=== PATIENT | female | born 1990 | race African-American/Black ===

== ENCOUNTER 2020-02-15 10:35 | Inpatient (IN) | payer OTHER ==
[~2020-02-15] VITALS: Ht 175.3 cm; Wt 131.5 kg
[2020-02-15] MEDS: LACTATED RINGERS 1,000 ML IV SCH (12:00)
[2020-02-15] MEDS ORDERED: DEXT 5%/LR + PITOCIN 20UNITS/L 1,000 ML IV ONE (14:14)
[2020-02-15] MEDS ORDERED: LACTATED RINGERS 1,000 ML IV SCH (14:20)
[2020-02-15] MEDS ORDERED: MISOPROSTOL 200MCG TABLET VG SCH (14:30)
[2020-02-15] MEDS ORDERED: LIDOCAINE HCL 1% 20ML VIAL (Pyxis) INJ INFIL PRN (14:30)
[2020-02-15] MEDS ORDERED: METHYLERGONOVINE MALEATE 0.2 MG/ML IM PRN (14:30)
[2020-02-15 15:09] LABS: PARTIAL THROMBOPLASTIN TIME 28.1 sec (23.4-31.0); PROTHROMBIN TIME 10.4 sec (9.6-11.0)
[2020-02-15 15:31] LABS: BASOPHILS % 0.2 % (0.0-2.0); EOSINOPHILS % 1.6 % (0.0-5.0); HEMATOCRIT. 34.8 % (36.0-48.0); HEMOGLOBIN. 11.4 g/dL (12.0-16.0); LYMPHOCYTES % 14.9 % (20.0-50.0); MEAN CORPUSCULAR HEMOGLOBIN 27.8 pg (28.0-32.0); MEAN CORPUSCULAR VOLUME 84.9 fL (81.0-99.0); MEAN PLATELET VOLUME 8.4 fl (7.4-10.4); MONOCYTES % 7.2 % (2.0-8.0); NEUTROPHILS % 76.1 % (40.0-76.0); PLATELET 289 x1000/uL (130-400); RED CELL DISTRIBUTION WIDTH 17.2 % (11.6-14.6)
[2020-02-15 15:43] LABS: HEPATITIS B SURFACE ANTIGEN NEGATIVE
[2020-02-15] MEDS ORDERED: ROPIVACAINE HCL/PF EPIDURAL 200 ML EPI SCH (18:30)
[2020-02-15] MEDS ORDERED: BUTORPHANOL TARTRATE 2 MG/ML VIAL IM PRN (19:45)
[2020-02-15] MEDS ORDERED: LABETALOL HCL 5MG/ML VIAL 20ML IV PRN ×3 (19:45→21:45)
[2020-02-15] MEDS: LABETALOL HCL 200MG TABLET PO SCH (19:48)
[2020-02-15] MEDS ORDERED: PENICILLIN G POTASSIUM 5 MMU in DEXT 5% WATER 100 ML IV NR (20:00)
[2020-02-15] MEDS: BUTORPHANOL TARTRATE 2 MG/ML VIAL IV PRN ×2 (20:09→22:27)
[2020-02-15] MEDS: LABETALOL HCL 5MG/ML VIAL 20ML IV PRN ×2 (20:26→20:50)
[2020-02-16] MEDS ORDERED: PENICILLIN G POTASSIUM 2.5 MMU in DEXTROSE 5% WATER 50 ML IV SCH ×2
[2020-02-16] MEDS: BUTORPHANOL TARTRATE 2 MG/ML VIAL IV PRN (00:15)
[2020-02-16 00:51] LABS: CLARITY URINE CLOUDY (CLEAR); COLOR URINE YELLOW (YELLOW); KETONES URINE NEGATIVE (NEGATIVE); LEUKOCYTE ESTERASE URINE 1+ (NEGATIVE); NITRITE URINE NEGATIVE (NEGATIVE); OCCULT BLOOD URINE 3+ (NEGATIVE); PH URINE 6.5 (4.5-8.0); PROTEIN URINE TRACE (NEGATIVE); SPECIFIC GRAVITY URINE 1.012 (1.005-1.030); UROBILINOGEN URINE 0.2 E.U./dL (0.2-1.0)
[2020-02-16 01:05] LABS: *AMPHETAMINES SCREEN URINE NEGATIVE (NEGATIVE); *BARBITURATES SCREEN URINE NEGATIVE (NEGATIVE); *BENZODIAZEPINES SCREEN URINE NEGATIVE (NEGATIVE); *COCAINE SCREEN URINE NEGATIVE (NEGATIVE)
[2020-02-16 01:06] LABS: METHADONE URINE SCREEN NEGATIVE (NEGATIVE); OPIATES URINE SCREEN NEGATIVE (NEGATIVE); PHENCYCLIDINE URINE SCREEN NEGATIVE (NEGATIVE)
[2020-02-16 01:08] LABS: CANNABINOID URINE SCREEN PRESUMTIVE POSITIVE (NEGATIVE)
[2020-02-16] MEDS ORDERED: ONDANSETRON HCL 4MG/2ML INJ IV PRN (03:30)
[2020-02-16] MEDS: LACTATED RINGERS 1,000 ML IV SCH ×3 (05:53→19:30)
[2020-02-16 06:27] LABS: D-DIMER 0.69 mg/L FEU (<0.50); PARTIAL THROMBOPLASTIN TIME 28.9 sec (23.4-31.0); PROTHROMBIN TIME 10.6 sec (9.6-11.0)
[2020-02-16 06:29] LABS: CLARITY URINE CLEAR (CLEAR); COLOR URINE YELLOW (YELLOW); KETONES URINE NEGATIVE (NEGATIVE); LEUKOCYTE ESTERASE URINE NEGATIVE (NEGATIVE); NITRITE URINE NEGATIVE (NEGATIVE); OCCULT BLOOD URINE 1+ (NEGATIVE); PH URINE 6.5 (4.5-8.0); PROTEIN URINE NEGATIVE (NEGATIVE); SPECIFIC GRAVITY URINE 1.014 (1.005-1.030); UROBILINOGEN URINE 0.2 E.U./dL (0.2-1.0)
[2020-02-16 06:30] LABS: BASOPHILS % 0.4 % (0.0-2.0); CHLORIDE 106 mEq/L (98-107); HEMATOCRIT. 35.5 % (36.0-48.0); HEMOGLOBIN. 11.5 g/dL (12.0-16.0); LYMPHOCYTES % 8.3 % (20.0-50.0); MEAN CORPUSCULAR HEMOGLOBIN 27.3 pg (28.0-32.0); MEAN CORPUSCULAR VOLUME 84.4 fL (81.0-99.0); MEAN PLATELET VOLUME 8.2 fl (7.4-10.4); MONOCYTES % 7.1 % (2.0-8.0); NEUTROPHILS % 83.2 % (40.0-76.0); PLATELET 256 x1000/uL (130-400); RED BLOOD CELL COUNT 4.21 mill/uL (4.2-5.4); RED CELL DISTRIBUTION WIDTH 16.6 % (11.6-14.6)
[2020-02-16] MEDS ORDERED: FENTANYL CITRATE/PF 50MCG/ML 2ML VIAL ONE ×3 (08:26→19:38)
[2020-02-16] MEDS: LABETALOL HCL 200MG TABLET PO SCH ×2 (10:18→22:12)
[2020-02-16] MEDS ORDERED: LIDOCAINE HCL 2%/EPINEPHRINE 1:100,000 20 ML VIAL INFIL ONE (11:10)
[2020-02-16] MEDS: DEXT 5%/LR + PITOCIN 20UNITS/L 1,000 ML IV SCH (15:27)
[2020-02-16] MEDS ORDERED: ROPIVACAINE HCL/PF EPIDURAL 200 ML EPI ONE (18:10)
[2020-02-16] MEDS: LABETALOL HCL 5MG/ML VIAL 20ML IV PRN (19:50)
[2020-02-16 21:43] LABS: CLARITY URINE CLEAR (CLEAR); COLOR URINE YELLOW (YELLOW); KETONES URINE TRACE (NEGATIVE); LEUKOCYTE ESTERASE URINE TRACE (NEGATIVE); NITRITE URINE NEGATIVE (NEGATIVE); OCCULT BLOOD URINE 3+ (NEGATIVE); PH URINE 6.5 (4.5-8.0); PROTEIN URINE 1+ (NEGATIVE); SPECIFIC GRAVITY URINE 1.009 (1.005-1.030); UROBILINOGEN URINE 0.2 E.U./dL (0.2-1.0)
[2020-02-16 21:44] LABS: BASOPHILS % 0.3 % (0.0-2.0); EOSINOPHILS % 1.8 % (0.0-5.0); HEMATOCRIT. 34.9 % (36.0-48.0); HEMOGLOBIN. 11.6 g/dL (12.0-16.0); LYMPHOCYTES % 9.9 % (20.0-50.0); MEAN CORPUSCULAR HEMOGLOBIN 28.1 pg (28.0-32.0); MEAN CORPUSCULAR VOLUME 84.2 fL (81.0-99.0); MEAN PLATELET VOLUME 8.2 fl (7.4-10.4); MONOCYTES % 9.1 % (2.0-8.0); NEUTROPHILS % 78.9 % (40.0-76.0); PLATELET 271 x1000/uL (130-400); RED BLOOD CELL COUNT 4.14 mill/uL (4.2-5.4); RED CELL DISTRIBUTION WIDTH 16.8 % (11.6-14.6)
[2020-02-16 21:47] LABS: CHLORIDE 105 mEq/L (98-107)
[2020-02-16 22:00] LABS: D-DIMER 0.75 mg/L FEU (<0.50); PARTIAL THROMBOPLASTIN TIME 30.5 sec (23.4-31.0); PROTHROMBIN TIME 10.4 sec (9.6-11.0)
[2020-02-17] MEDS ORDERED: FENTANYL CITRATE/PF 50MCG/ML 2ML VIAL ONE ×6 (03:32→21:36)
[2020-02-17] MEDS: LACTATED RINGERS 1,000 ML IV SCH ×2 (03:46→17:12)
[2020-02-17] MEDS: BUTORPHANOL TARTRATE 2 MG/ML VIAL IV PRN ×2 (07:18→18:38)
[2020-02-17] MEDS ORDERED: HYDRALAZINE 20MG/ML VIAL IV PRN (07:30)
[2020-02-17] MEDS ORDERED: LABETALOL HCL 5MG/ML VIAL 20ML IV PRN ×7 (07:30→21:00)
[2020-02-17] MEDS ORDERED: ROPIVACAINE HCL/PF EPIDURAL 200 ML EPI ONE ×2 (08:26→20:54)
[2020-02-17] MEDS: LABETALOL HCL 200MG TABLET PO SCH ×2 (10:55→21:01)
[2020-02-17] MEDS: DEXT 5%/LR + PITOCIN 20UNITS/L 1,000 ML IV SCH (13:43)
[2020-02-17 17:16] LABS: CHLORIDE 104 mEq/L (98-107)
[2020-02-17 17:17] LABS: CLARITY URINE CLOUDY (CLEAR); COLOR URINE ORANGE (YELLOW); KETONES URINE 2+ (NEGATIVE); LEUKOCYTE ESTERASE URINE 2+ (NEGATIVE); NITRITE URINE NEGATIVE (NEGATIVE); OCCULT BLOOD URINE 3+ (NEGATIVE); PH URINE 5.5 (4.5-8.0); PROTEIN URINE 2+ (NEGATIVE); SPECIFIC GRAVITY URINE 1.016 (1.005-1.030)
[2020-02-17 17:18] LABS: HEMATOCRIT. 35.7 % (36.0-48.0); HEMOGLOBIN. 11.7 g/dL (12.0-16.0); MEAN CORPUSCULAR HEMOGLOBIN 27.7 pg (28.0-32.0); MEAN CORPUSCULAR VOLUME 84.5 fL (81.0-99.0); MEAN PLATELET VOLUME 8.5 fl (7.4-10.4); PLATELET 256 x1000/uL (130-400); RED BLOOD CELL COUNT 4.22 mill/uL (4.2-5.4)
[2020-02-17 17:33] LABS: D-DIMER 0.9 mg/L FEU (<0.50); PARTIAL THROMBOPLASTIN TIME 31.7 sec (23.4-31.0); PROTHROMBIN TIME 10.4 sec (9.6-11.0)
[2020-02-17 18:14] LABS: PLATELET ESTIMATE NORMAL
[2020-02-17] MEDS ORDERED: CEFAZOLIN SODIUM 1000MG/VIAL ONE (21:36)
[2020-02-17] MEDS ORDERED: OXYTOCIN 10 UNITS/ML 1ML ONE (21:36)
[2020-02-17] MEDS ORDERED: MORPHINE SULFATE/PF 1MG/ML 10ML AMP ONE (21:37)
[2020-02-17] MEDS ORDERED: CITRIC ACID/SODIUM CITRATE SOLN 30ML UDC PO NR (22:00)
[2020-02-17] MEDS ORDERED: ONDANSETRON HCL 4MG/2ML INJ ONE (22:31)
[2020-02-17] MEDS ORDERED: KETAMINE HCL 50 MG/ML 10ML ONE (22:37)
[2020-02-17] MEDS ORDERED: MIDAZOLAM HCL 2 MG/2 ML VIAL ONE (22:42)
[2020-02-17] MEDS ORDERED: KETOROLAC 60MG/2ML VIAL IM ONE (23:05)
[2020-02-17] MEDS ORDERED: DIPHENHYDRAMINE 50MG/ML VIAL IV PRN (23:30)
[2020-02-17] MEDS ORDERED: KETOROLAC 30MG/ML VIAL IV SCH (23:30)
[2020-02-17] MEDS ORDERED: BUTORPHANOL TARTRATE 2 MG/ML VIAL IV PRN ×2 (23:30)
[2020-02-17] MEDS ORDERED: NALOXONE HCL 0.4 MG/ML 1ML VIAL IV PRN (23:30)
[2020-02-17] MEDS ORDERED: IBUPROFEN 400MG TABLET PO PRN (23:30)
[2020-02-17] MEDS: HYDROMORPHONE HCL/PF 2MG/ML CPJ IV PRN ×2 (23:45→23:59)
[2020-02-18] MEDS ORDERED: LABETALOL HCL 5MG/ML VIAL 20ML IV PRN ×3 (00:15)
[2020-02-18] MEDS: MAGNESIUM 20 G PREMIX (L & D) 500 ML IV SCH ×2 (00:33→09:01)
[2020-02-18] MEDS: BUTORPHANOL TARTRATE 2 MG/ML VIAL IV PRN (04:23)
[2020-02-18] MEDS: DEXT 5%/LR + PITOCIN 20UNITS/L 1,000 ML IV SCH (04:26)
[2020-02-18 07:07] LABS: BASOPHILS % 0.3 % (0.0-2.0); EOSINOPHILS % 0.7 % (0.0-5.0); HEMATOCRIT. 33.5 % (36.0-48.0); LYMPHOCYTES % 10.5 % (20.0-50.0); MEAN CORPUSCULAR HEMOGLOBIN 27.5 pg (28.0-32.0); MEAN PLATELET VOLUME 7.8 fl (7.4-10.4); MONOCYTES % 8.9 % (2.0-8.0); NEUTROPHILS % 79.6 % (40.0-76.0); PLATELET 244 x1000/uL (130-400); RED BLOOD CELL COUNT 3.99 mill/uL (4.2-5.4); RED CELL DISTRIBUTION WIDTH 16.5 % (11.6-14.6)
[2020-02-18] MEDS: LABETALOL HCL 200MG TABLET PO SCH ×2 (13:00→21:00)
[2020-02-18] MEDS: HYDROCODONE/ACETAMINOPHEN 5/325MG TABLET PO PRN (13:22)
[2020-02-18] MEDS: IBUPROFEN 800MG TABLET PO PRN ×2 (16:45→23:10)
[2020-02-19] VITALS (7 sets, daily range): BP systolic 128–144; BP diastolic 60–82
[2020-02-19] MEDS: HYDROCODONE/ACETAMINOPHEN 5/325MG TABLET PO PRN ×5 (01:09→22:38)
[2020-02-19] MEDS: MAGNESIUM/ALUMINUM HYDROXIDE/SIMETHICONE 30ML UDC PO PRN ×4 (01:34→21:13)
[2020-02-19] MEDS: SIMETHICONE 80MG TABLET CHEW PO SCH ×4 (02:34→21:14)
[2020-02-19] MEDS: IBUPROFEN 800MG TABLET PO PRN (05:27)
[2020-02-19] MEDS: BISACODYL 10MG SUPP PR PRN (06:18)
[2020-02-19] MEDS: LABETALOL HCL 200MG TABLET PO SCH ×2 (09:11→21:15)
[2020-02-20 00:35] VITALS: BP 133/71
[2020-02-20] MEDS: BISACODYL 10MG SUPP PR PRN (00:39)
[2020-02-20 04:35] VITALS: BP 141/85
[2020-02-20] MEDS: IBUPROFEN 800MG TABLET PO PRN (07:33)
[2020-02-20] MEDS: SIMETHICONE 80MG TABLET CHEW PO SCH (07:34)
[2020-02-20] MEDS ORDERED: LABE200T28 MT (07:59)
[2020-02-20 08:00] VITALS: BP 153/85
[2020-02-20] MEDS: LABETALOL HCL 200MG TABLET PO SCH (09:10)
[2020-02-23 07:11] LABS: CANNABINOID CONFIRMATION URINE Positive (.)
[2020-02-28] MEDS ORDERED: PROPOFOL 10MG/ML 100ML 100 ML IV ONE (12:11)
== END 2020-02-20 10:30 | disposition home or self-care (01) | DRG 540 ==
LOC: 8 EST LDRP 10:35 → OBSVTOIN 10:35 → 8 EST LDRP 12:32 → 8EST 02-18 23:47
PROVIDERS: ADMIT Obstetrics & Gynecology; ATTEND Obstetrics & Gynecology
PROC: 10D00Z1 Extraction of Products of Conception, Low, Open Approach (ICD-10-PCS; principal; 2020-02-17)
DX: O13.4 Gestational [pregnancy-induced] hypertension without significant proteinuria, complicating childbirth (principal); O99.324 Drug use complicating childbirth; O33.9 Maternal care for disproportion, unspecified; O61.9 Failed induction of labor, unspecified; F12.10 Cannabis abuse, uncomplicated; F15.10 Other stimulant abuse, uncomplicated; Z37.0 Single live birth; Z3A.37 37 weeks gestation of pregnancy
CPT/HCPCS: 36415; 76805; 80053; 80305; 80349; 80359; 81003; 83735; 84550; 85025; 85379; 85384; 86592; 86703; 86762; 86850; 86900; 87340; 88307; 99281; G0378; J0595; J0690; J1170; J1200; J1885; J2250; J2274; J2405; J2540; J2590; J2704; J2795; J3010; J3475; J3490; J7060; J7120

== ENCOUNTER 2021-11-23 09:40 | Inpatient (IN) | payer OTHER ==
[~2021-11-23] VITALS: Ht 175.3 cm; Wt 135.6 kg
[~2021-11-23 09:40] MED LIST: LABE200T9 MT
[2021-11-23] MEDS ORDERED: CARBOPROST TROMETHAMINE 250 MCG/ML AMPUL IM PRN (10:45)
[2021-11-23] MEDS ORDERED: DEXT 5%/LR + PITOCIN 20UNITS/L 1,000 ML IV SCH (10:45)
[2021-11-23] MEDS ORDERED: METHYLERGONOVINE MALEATE 0.2 MG/ML IM PRN (10:45)
[2021-11-23] MEDS ORDERED: NALOXONE HCL 0.4 MG/ML 1ML VIAL IM PRN (10:45)
[2021-11-23 12:13] LABS: BASOPHILS % 0.3 % (0.0-2.0); EOSINOPHILS % 1.6 % (0.0-5.0); HEMATOCRIT. 33.1 % (36.0-48.0); HEMOGLOBIN. 10.5 g/dL (12.0-16.0); LYMPHOCYTES % 19.3 % (20.0-50.0); MEAN CORPUSCULAR HEMOGLOBIN 24.3 pg (28.0-32.0); MEAN CORPUSCULAR VOLUME 76.5 fL (81.0-99.0); MEAN PLATELET VOLUME 8.9 fl (7.4-10.4); MONOCYTES % 8.2 % (2.0-8.0); NEUTROPHILS % 70.6 % (40.0-76.0); PLATELET 314 x1000/uL (130-400); RED BLOOD CELL COUNT 4.33 mill/uL (4.2-5.4); RED CELL DISTRIBUTION WIDTH 17.3 % (11.6-14.6)
[2021-11-23 12:22] LABS: CLARITY URINE CLEAR (CLEAR); COLOR URINE YELLOW (YELLOW); KETONES URINE TRACE (NEGATIVE); LEUKOCYTE ESTERASE URINE TRACE (NEGATIVE); NITRITE URINE NEGATIVE (NEGATIVE); OCCULT BLOOD URINE NEGATIVE (NEGATIVE); PROTEIN URINE 2+ (NEGATIVE); SPECIFIC GRAVITY URINE 1.024 (1.005-1.030); UROBILINOGEN URINE 0.2 E.U./dL (0.2-1.0)
[2021-11-23 12:24] LABS: PARTIAL THROMBOPLASTIN TIME 25.7 sec (23.4-31.0); PROTHROMBIN TIME 10.8 sec (9.6-11.0)
[2021-11-23 12:55] LABS: *AMPHETAMINES SCREEN URINE NEGATIVE (NEGATIVE); *BARBITURATES SCREEN URINE NEGATIVE (NEGATIVE); *BENZODIAZEPINES SCREEN URINE NEGATIVE (NEGATIVE); *COCAINE SCREEN URINE NEGATIVE (NEGATIVE); METHADONE URINE SCREEN NEGATIVE (NEGATIVE); OPIATES URINE SCREEN NEGATIVE (NEGATIVE)
[2021-11-23 12:56] LABS: CANNABINOID URINE SCREEN NEGATIVE (NEGATIVE); PHENCYCLIDINE URINE SCREEN NEGATIVE (NEGATIVE)
[2021-11-23] MEDS ORDERED: CITRIC ACID/SODIUM CITRATE SOLN 30ML UDC PO NR (13:15)
[2021-11-23] MEDS: LACTATED RINGERS 1,000 ML IV SCH ×2 (13:16→18:17)
[2021-11-23 15:31] LABS: HEPATITIS B SURFACE ANTIGEN NEGATIVE
[2021-11-23] MEDS ORDERED: MORPHINE SULFATE/PF 1MG/ML 10ML AMP ONE (19:50)
[2021-11-23] MEDS ORDERED: FENTANYL CITRATE/PF 50MCG/ML 2ML VIAL ONE (19:50)
[2021-11-23] MEDS ORDERED: CEFAZOLIN SODIUM 1000MG/VIAL ONE ×2 (19:52→20:51)
[2021-11-23] MEDS ORDERED: DIPHENHYDRAMINE 25MG CAPSULE PO PRN (20:15)
[2021-11-23] MEDS ORDERED: LANOLIN OINT 7GM TUBE TOP PRN (20:15)
[2021-11-23] MEDS ORDERED: RHO(D) IMMUNE GLOBULIN 300 MCG/SYR IM PRN (20:15)
[2021-11-23] MEDS ORDERED: IBUPROFEN 400MG TABLET PO PRN (20:15)
[2021-11-23] MEDS ORDERED: BISACODYL 10MG SUPP PR PRN (20:15)
[2021-11-23] MEDS ORDERED: HEMORRHOIDAL SUPP PR PRN (20:15)
[2021-11-23] MEDS ORDERED: HYDROCODONE/ACETAMINOPHEN 5/325MG TABLET PO PRN (20:15)
[2021-11-23] MEDS ORDERED: ONDANSETRON HCL 4MG/2ML INJ IV PRN ×2 (20:15→20:45)
[2021-11-23] MEDS ORDERED: KETOROLAC 30MG/ML VIAL IV PRN (20:45)
[2021-11-23] MEDS ORDERED: HYDROMORPHONE HCL/PF 2MG/ML CPJ IV PRN (20:45)
[2021-11-23] MEDS ORDERED: MEPERIDINE HCL/PF 25MG/ML CPJ IV PRN (20:45)
[2021-11-23] MEDS ORDERED: LABETALOL 5MG/ML SYR 20 MG/4 ML SYRINGE IV PRN (20:45)
[2021-11-23] MEDS ORDERED: BUTORPHANOL TARTRATE 2 MG/ML VIAL IM PRN (20:45)
[2021-11-23] MEDS ORDERED: SODIUM CHLORIDE 0.9% 10ML VIAL ONE (20:51)
[2021-11-23] MEDS ORDERED: ONDANSETRON HCL 4MG/2ML INJ ONE (20:51)
[2021-11-23] MEDS ORDERED: EPHEDRINE SULFATE 50MG/ML VIAL ONE (20:51)
[2021-11-23] MEDS ORDERED: OXYTOCIN 10 UNITS/ML 1ML ONE ×2 (20:51→21:00)
[2021-11-23] MEDS ORDERED: DOCUSATE SODIUM 100MG CAPSULE PO SCH (21:00)
[2021-11-23] MEDS: DEXT 5%/LR + PITOCIN 20UNITS/L 1,000 ML IV SCH (23:09)
[2021-11-24] VITALS (7 sets, daily range): BP systolic 127–153; BP diastolic 67–87
[2021-11-24] MEDS: DIPHENHYDRAMINE 50MG/ML VIAL IV PRN ×2 (06:41→12:02)
[2021-11-24 07:35] LABS: BASOPHILS % 0.3 % (0.0-2.0); EOSINOPHILS % 0.9 % (0.0-5.0); HEMATOCRIT. 31.6 % (36.0-48.0); LYMPHOCYTES % 12.1 % (20.0-50.0); MEAN CORPUSCULAR HEMOGLOBIN 24.5 pg (28.0-32.0); MEAN CORPUSCULAR VOLUME 77.3 fL (81.0-99.0); MEAN PLATELET VOLUME 8.7 fl (7.4-10.4); MONOCYTES % 9.4 % (2.0-8.0); NEUTROPHILS % 77.3 % (40.0-76.0); PLATELET 265 x1000/uL (130-400); RED BLOOD CELL COUNT 4.09 mill/uL (4.2-5.4); RED CELL DISTRIBUTION WIDTH 17.1 % (11.6-14.6)
[2021-11-24] MEDS: FERROUS SULFATE 325MG TABLET PO SCH ×3 (08:32→18:15)
[2021-11-24] MEDS: MAGNESIUM/ALUMINUM HYDROXIDE/SIMETHICONE 30ML UDC PO SCH ×4 (08:32→21:10)
[2021-11-24] MEDS: SIMETHICONE 80MG TABLET CHEW PO SCH ×5 (08:33→21:12)
[2021-11-24] MEDS ORDERED: PRENATAL VIT/FE FUMARATE/FA TABLET PO SCH (09:00)
[2021-11-24] MEDS: DEXT 5%/LR + PITOCIN 20UNITS/L 1,000 ML IV SCH (12:49)
[2021-11-24] MEDS ORDERED: NALOXONE HCL 0.4 MG/ML 1ML VIAL IV PRN (15:45)
[2021-11-24] MEDS ORDERED: BUTORPHANOL TARTRATE 2 MG/ML VIAL IV PRN (15:45)
[2021-11-24] MEDS: IBUPROFEN 800MG TABLET PO PRN (21:11)
[2021-11-25] VITALS: BP 123/76
[2021-11-25] MEDS: IBUPROFEN 800MG TABLET PO PRN ×2 (03:11→12:06)
[2021-11-25 04:00] VITALS: BP 122/69
[2021-11-25 07:45] VITALS: BP 140/75
[2021-11-25] MEDS ORDERED: PREN1TAB23 MT (07:45)
[2021-11-25] MEDS ORDERED: IBUP-2030 MT (07:45)
[2021-11-25] MEDS ORDERED: FERR325T6 MT (07:45)
[2021-11-25] MEDS ORDERED: LABE300T3 MT (08:02)
[2021-11-25] MEDS: MAGNESIUM/ALUMINUM HYDROXIDE/SIMETHICONE 30ML UDC PO SCH (08:39)
[2021-11-25] MEDS: FERROUS SULFATE 325MG TABLET PO SCH (08:40)
[2021-11-25] MEDS: LABETALOL HCL 300MG TABLET PO SCH ×2 (08:41)
== END 2021-11-25 15:20 | disposition home or self-care (01) | DRG 540 ==
LOC: OBSVTOIN 09:40 → 8 EST LDRP 09:40 → 8EST 22:36 → 8 EST LDRP 22:38 → 8EST 11-24 00:02
PROVIDERS: ADMIT Obstetrics & Gynecology; ATTEND Obstetrics & Gynecology
PROC: 10D00Z1 Extraction of Products of Conception, Low, Open Approach (ICD-10-PCS; principal; 2021-11-23)
DX: O34.211 Maternal care for low transverse scar from previous cesarean delivery (principal); O99.324 Drug use complicating childbirth; Z3A.39 39 weeks gestation of pregnancy; Z37.0 Single live birth; F16.10 Hallucinogen abuse, uncomplicated; Z20.822 Contact with and (suspected) exposure to COVID-19; O90.81 Anemia of the puerperium
CPT/HCPCS: 36415; 76805; 76818; 80305; 80359; 81003; 85025; 86592; 86703; 86762; 86850; 86900; 87340; 87426; 88307; G0378; J0595; J0690; J1200; J1885; J2274; J2405; J2590; J3010; J3490; J7120